=== PATIENT | male | born 1975 | race African-American/Black ===

== ENCOUNTER → 2020-04-01 | Outpatient (CLI) | payer MEDICAID | END | disposition home or self-care (01) | LOC: RAH 14:21 | PROVIDERS: ATTEND Orthopaedic Surgery | DX: M48.061 Spinal stenosis, lumbar region without neurogenic claudication (principal) | CPT/HCPCS: 72131 ==

== ENCOUNTER → 2020-04-29 | Outpatient (CLI) | payer MEDICAID | END | disposition home or self-care (01) | LOC: EDUNIT# 13:00 → SHCH 13:00 | PROVIDERS: ATTEND Internal Medicine Cardiovascular Disease | DX: R20.0 Anesthesia of skin (principal); R06.00 Dyspnea, unspecified; R07.9 Chest pain, unspecified | CPT/HCPCS: 93306; 93356; 93922 ==

== ENCOUNTER 2020-05-12 15:49 | Inpatient (IN) | payer MEDICAID ==
[~2020-05-12] VITALS: Ht 190.5 cm; Wt 158.2 kg
[2020-05-12 16:47] LABS: BASOPHILS % (AUTO) 0.5 % (0.0-5.0); EOSINOPHILS % (AUTO) 3.1 % (0.0-8.0); HEMATOCRIT 37.3 % (42-54); LYMPHOCYTES % (AUTO) 27.8 % (21.0-51.0); MEAN CORPUSCULAR HEMOGLOBIN 28.6 pg (27.0-33.0); MEAN CORPUSCULAR HGB CONC 33.2 g/dL (32.0-36.0); MEAN CORPUSCULAR VOLUME 85.9 fL (79-99); MONOCYTES % (AUTO) 6.8 % (3.0-13.0); NEUTROPHILS % (AUTO) 61.5 % (40.0-77.0); PLATELET COUNT (AUTO) 234 K/uL (130-400); RED BLOOD CELL COUNT(AUTO) 4.34 MIL/uL (4.50-6.20); RED CELL DISTRIBUTION WIDTH 13.7 % (11.0-15.5); WHITE BLOOD COUNT (AUTO) 6.5 K/uL (4.8-10.8)
[2020-05-12 16:55] LABS: POTASSIUM 3.8 mmol/L (3.5-5.1)
[2020-05-12 16:58] LABS: INR 1.05 (0.85-1.15); PROTHROMBIN TIME 11.4 SEC (9.6-11.6)
[2020-05-12 16:59] LABS: PARTIAL THROMBOPLASTIN TIME 31.3 SEC (26.3-35.5)
[2020-05-12 17:00] LABS: BILIRUBIN,TOTAL 0.3 mg/dL (0.2-1.0); TOTAL PROTEIN, SERUM 7.4 g/dL (6.0-8.3)
[2020-05-12] MEDS ORDERED: 0.9%NACL 10ML VIAL IVP PRN (17:45)
[2020-05-12 18:32] VITALS: BP 162/84
[2020-05-12] MEDS ORDERED: SERT-439 PO (18:34)
[2020-05-12] MEDS ORDERED: QUET100T34 PO (18:34)
[2020-05-12] MEDS ORDERED: RIVA20TA PO (18:34)
[2020-05-12] MEDS ORDERED: NAPR500T6 PO (18:34)
[2020-05-12] MEDS ORDERED: LEVE500T19 PO (18:34)
[2020-05-12] MEDS ORDERED: LISI1TAB53 PO (18:34)
[2020-05-12] MEDS ORDERED: FLEC100T3 PO (18:34)
[2020-05-12] MEDS ORDERED: SERT-440 PO (18:34)
[2020-05-12] MEDS ORDERED: LORA-192 PO (18:34)
[2020-05-12] MEDS ORDERED: METO-408 PO (18:34)
[2020-05-12] MEDS ORDERED: ERGO500093 PO (18:34)
[2020-05-12] MEDS ORDERED: FUROSEMIDE 20 MG TABLET PO SCH (18:45)
[2020-05-12] MEDS ORDERED: ACETAMINOPHEN 325 MG TAB PO PRN ×2 (19:00)
[2020-05-12] MEDS ORDERED: ONDANSETRON 4MG INJ IV PRN (19:00)
[2020-05-12] MEDS: TRAMADOL HCL 50 MG TABLET PO SCH (19:15)
[2020-05-12 19:41] VITALS: BP 163/74
[2020-05-12] MEDS: FLECAINIDE ACETATE 100 MG TABLET PO SCH (20:41)
[2020-05-12] MEDS: QUETIAPINE FUMARATE 100 MG TAB PO SCH (20:41)
[2020-05-12] MEDS: FAMOTIDINE 20MG VIAL IV SCH (20:41)
[2020-05-12 23:52] VITALS: BP 153/92
[2020-05-13] MEDS: TRAMADOL HCL 50 MG TABLET PO SCH ×4 (00:44→19:15)
[2020-05-13 03:47] LABS: BASOPHILS % (AUTO) 0.5 % (0.0-5.0); EOSINOPHILS % (AUTO) 4.2 % (0.0-8.0); HEMATOCRIT 35.3 % (42-54); LYMPHOCYTES % (AUTO) 34.7 % (21.0-51.0); MEAN CORPUSCULAR HEMOGLOBIN 29.2 pg (27.0-33.0); MEAN CORPUSCULAR VOLUME 85.9 fL (79-99); MONOCYTES % (AUTO) 6.2 % (3.0-13.0); NEUTROPHILS % (AUTO) 54.1 % (40.0-77.0); PLATELET COUNT (AUTO) 226 K/uL (130-400); RED BLOOD CELL COUNT(AUTO) 4.11 MIL/uL (4.50-6.20); RED CELL DISTRIBUTION WIDTH 13.8 % (11.0-15.5); WHITE BLOOD COUNT (AUTO) 5.8 K/uL (4.8-10.8)
[2020-05-13 04:06] LABS: ALBUMIN 3.6 g/dL (3.5-5.0); BILIRUBIN,TOTAL 0.2 mg/dL (0.2-1.0); POTASSIUM 3.6 mmol/L (3.5-5.1)
[2020-05-13 04:50] VITALS: BP 136/71
[2020-05-13 08:00] VITALS: BP 136/64
[2020-05-13] MEDS ORDERED: 0.9% NACL 500ML IV.SOLN 500 ML IV SCH (08:45)
[2020-05-13] MEDS: FLECAINIDE ACETATE 100 MG TABLET PO SCH ×2 (09:19→21:32)
[2020-05-13] MEDS: HYDROCHLOROTHIAZIDE 25 MG TABLET PO SCH (09:19)
[2020-05-13] MEDS: SERTRALINE HCL 50 MG TABLET PO SCH (09:19)
[2020-05-13] MEDS: LISINOPRIL 20 MG TABLET PO SCH (09:19)
[2020-05-13] MEDS: FAMOTIDINE 20MG VIAL IV SCH ×2 (09:19→21:31)
[2020-05-13 12:00] VITALS: BP_SYST 130; BP_SYST 134; BP_DIAS 76; BP_DIAS 77
[2020-05-13 16:00] VITALS: BP 149/80
[2020-05-13 19:33] VITALS: BP 144/74
[2020-05-13] MEDS: QUETIAPINE FUMARATE 100 MG TAB PO SCH (21:31)
[2020-05-13] MEDS ORDERED: QUET100T PO (21:37)
[2020-05-13 23:55] VITALS: BP 137/77
[2020-05-14] VITALS (10 sets, daily range): BP systolic 110–153; BP diastolic 58–92
[2020-05-14 00:36] LABS: BASOPHILS % (AUTO) 0.6 % (0.0-5.0); EOSINOPHILS % (AUTO) 3.3 % (0.0-8.0); HEMATOCRIT 36.2 % (42-54); LYMPHOCYTES % (AUTO) 30.1 % (21.0-51.0); MEAN CORPUSCULAR HEMOGLOBIN 29.2 pg (27.0-33.0); MEAN CORPUSCULAR HGB CONC 34.3 g/dL (32.0-36.0); MEAN CORPUSCULAR VOLUME 85.2 fL (79-99); MONOCYTES % (AUTO) 6.7 % (3.0-13.0); PLATELET COUNT (AUTO) 230 K/uL (130-400); RED BLOOD CELL COUNT(AUTO) 4.25 MIL/uL (4.50-6.20); RED CELL DISTRIBUTION WIDTH 13.9 % (11.0-15.5); WHITE BLOOD COUNT (AUTO) 6.4 K/uL (4.8-10.8)
[2020-05-14] MEDS: TRAMADOL HCL 50 MG TABLET PO SCH ×4 (01:15→20:38)
[2020-05-14] MEDS ORDERED: SODIUM BICARB 50MEQ 50ML VIAL 50 ML ONE (07:12)
[2020-05-14] MEDS ORDERED: IOHEXOL 350 MG/ML 100ML INFUS..BTL IV ONE (07:13)
[2020-05-14] MEDS ORDERED: NITROGLYCERIN 2 MG VIAL IV ONE (07:13)
[2020-05-14] MEDS ORDERED: NICARDIPINE 25MG INJ IV ONE (07:13)
[2020-05-14] MEDS ORDERED: IOHEXOL-350 50ML VIAL IV ONE (07:13)
[2020-05-14] MEDS ORDERED: MIDAZOLAM HCL 1 MG/ML 2ML VIAL ONE ×4 (07:13→12:28)
[2020-05-14] MEDS ORDERED: FENTANYL CITRATE PF 50 MCG/1 ML 2ML VIAL ONE ×2 (07:13→08:28)
[2020-05-14] MEDS ORDERED: BIVALIRUDIN 250 MG/VIAL IV ONE (07:13)
[2020-05-14] MEDS ORDERED: LIDOCAINE HCL 400MG/20ML VIAL ONE ×2 (07:14→10:40)
[2020-05-14] MEDS ORDERED: HEPARIN 10,000 UNIT/10ML (1,000 UNIT/ML) VIAL ONE (07:22)
[2020-05-14] MEDS ORDERED: 0.9%NACL 1000ML 1,000 ML IV SCH (08:45)
[2020-05-14] MEDS ORDERED: ISOSORBIDE MONO 30MG SR TAB PO SCH (09:00)
[2020-05-14] MEDS: SERTRALINE HCL 50 MG TABLET PO SCH (09:00)
[2020-05-14] MEDS: ISOSORBIDE MONO 30MG SR TAB PO SCH (09:59)
[2020-05-14] MEDS: FAMOTIDINE 20MG VIAL IV SCH ×2 (09:59→20:37)
[2020-05-14] MEDS: LISINOPRIL 20 MG TABLET PO SCH (09:59)
[2020-05-14] MEDS: HYDROCHLOROTHIAZIDE 25 MG TABLET PO SCH (09:59)
[2020-05-14] MEDS: FLECAINIDE ACETATE 100 MG TABLET PO SCH (09:59)
[2020-05-14] MEDS: HYDRALAZINE 25MG TABLET PO SCH ×3 (09:59→20:38)
[2020-05-14] MEDS ORDERED: MEPERIDINE-PF 25 MG/ML SYG ONE ×3 (10:40→12:28)
[2020-05-14] MEDS ORDERED: LIDOCAINE HCL 1% MDV 50ML VIAL ONE (12:44)
[2020-05-14] MEDS ORDERED: HYDR-4153 PO (17:47)
[2020-05-14] MEDS ORDERED: ISOS60TA77 PO (17:47)
[2020-05-14] MEDS: QUETIAPINE FUMARATE 100 MG TAB PO SCH (20:39)
[2020-05-15] VITALS: BP 133/74
[2020-05-15] MEDS: TRAMADOL HCL 50 MG TABLET PO SCH ×3 (01:15→13:15)
[2020-05-15 04:00] VITALS: BP 117/60
[2020-05-15 04:36] LABS: BASOPHILS % (AUTO) 0.2 % (0.0-5.0); EOSINOPHILS % (AUTO) 0.2 % (0.0-8.0); HEMATOCRIT 36.1 % (42-54); LYMPHOCYTES % (AUTO) 11.3 % (21.0-51.0); MEAN CORPUSCULAR HEMOGLOBIN 28.5 pg (27.0-33.0); MEAN CORPUSCULAR VOLUME 86.4 fL (79-99); MONOCYTES % (AUTO) 3.8 % (3.0-13.0); NEUTROPHILS % (AUTO) 84.1 % (40.0-77.0); PLATELET COUNT (AUTO) 237 K/uL (130-400); RED BLOOD CELL COUNT(AUTO) 4.18 MIL/uL (4.50-6.20); RED CELL DISTRIBUTION WIDTH 13.9 % (11.0-15.5); WHITE BLOOD COUNT (AUTO) 8.3 K/uL (4.8-10.8)
[2020-05-15 04:52] LABS: CREATININE 1.2 mg/dL (0.5-1.5); POTASSIUM 3.4 mmol/L (3.5-5.1)
[2020-05-15 08:00] VITALS: BP 130/67
[2020-05-15] MEDS: SERTRALINE HCL 50 MG TABLET PO SCH (09:00)
[2020-05-15] MEDS: FAMOTIDINE 20MG VIAL IV SCH (09:40)
[2020-05-15] MEDS: HYDROCHLOROTHIAZIDE 25 MG TABLET PO SCH (09:42)
[2020-05-15] MEDS: LISINOPRIL 20 MG TABLET PO SCH (09:42)
[2020-05-15] MEDS: HYDRALAZINE 25MG TABLET PO SCH ×2 (09:42→15:46)
[2020-05-15] MEDS: ISOSORBIDE MONO 30MG SR TAB PO SCH (09:43)
[2020-05-15 12:00] VITALS: BP 131/63
[2020-05-15] MEDS ORDERED: KCL 20 MEQ ERTAB PO SCH (13:30)
[2020-05-15 16:00] VITALS: BP 159/87
== END 2020-05-15 18:13 | disposition home or self-care (01) | DRG 192 ==
LOC: EDH 15:49 → EDHIP 15:50 → 4DH 18:02
PROVIDERS: ADMIT Family Medicine; ATTEND Family Medicine
PROC: 4A023N7 Measurement of Cardiac Sampling and Pressure, Left Heart, Percutaneous Approach (ICD-10-PCS; principal; 2020-05-14)
PROC: B2111ZZ Fluoroscopy of Multiple Coronary Arteries using Low Osmolar Contrast (ICD-10-PCS; 2020-05-14)
PROC: B2151ZZ Fluoroscopy of Left Heart using Low Osmolar Contrast (ICD-10-PCS; 2020-05-14)
PROC: 0JH632Z Insertion of Monitoring Device into Chest Subcutaneous Tissue and Fascia, Percutaneous Approach (ICD-10-PCS; 2020-05-14)
PROC: 4A023FZ Measurement of Cardiac Rhythm, Percutaneous Approach (ICD-10-PCS; 2020-05-14)
PROC: 4A0234Z Measurement of Cardiac Electrical Activity, Percutaneous Approach (ICD-10-PCS; 2020-05-14)
DX: R07.9 Chest pain, unspecified (principal); I44.1 Atrioventricular block, second degree; R55 Syncope and collapse; I48.0 Paroxysmal atrial fibrillation; M17.0 Bilateral primary osteoarthritis of knee; F31.9 Bipolar disorder, unspecified; F41.9 Anxiety disorder, unspecified; G40.909 Epilepsy, unspecified, not intractable, without status epilepticus; I10 Essential (primary) hypertension; G47.33 Obstructive sleep apnea (adult) (pediatric); E66.01 Morbid (severe) obesity due to excess calories; I42.9 Cardiomyopathy, unspecified; Z68.41 Body mass index [BMI] 40.0-44.9, adult
CPT/HCPCS: 33285; 36415; 71045; 80048; 80053; 84484; 85025; 85610; 85730; 93005; 93458; 93620; 99156; 99157; C1730; C1760; C1769; C1894; G0378; J0583; J1644; J2175; J2250; J2405; J3010; J3490; Q9967

== ENCOUNTER 2020-05-20 19:12 | Emergency (ER) | payer MEDICAID ==
[~2020-05-20 19:12] MED LIST: ERGO500014 PO; FLEC100T3 PO; LEVE500T19 PO; LISI1TAB29 PO; LORA-192 PO; METO-408 PO; NAPR500T6 PO; QUET100T PO; QUET100T33 PO; RIVA20TA PO; SERT-439 PO; SERT-440 PO
== END 2020-05-20 19:32 | disposition left against medical advice (07) ==
LOC: EDH 19:12
DX: Z53.21 Procedure and treatment not carried out due to patient leaving prior to being seen by health care provider (principal)

== ENCOUNTER → 2020-08-17 | Outpatient (CLI) | payer OTHER ==
[~2020-08-17] VITALS: Ht 7.6 cm; Wt 154.2 kg
[~2020-08-17] MED LIST changes: -ERGO500014 PO; +ERGO500093 PO
== END | disposition home or self-care (01) ==
LOC: DTH 13:23
PROVIDERS: ATTEND Surgery
DX: G47.33 Obstructive sleep apnea (adult) (pediatric) (principal); E66.01 Morbid (severe) obesity due to excess calories; I10 Essential (primary) hypertension; M19.91 Primary osteoarthritis, unspecified site; E78.00 Pure hypercholesterolemia, unspecified
CPT/HCPCS: 97802

== ENCOUNTER → 2020-10-07 | Outpatient (CLI) | payer OTHER ==
[~2020-10-07] MED LIST changes: +HYDR-4153 PO; +ISOS60TA77 PO
== END | disposition home or self-care (01) ==
LOC: DTH 11:28
PROVIDERS: ATTEND Surgery
DX: G47.33 Obstructive sleep apnea (adult) (pediatric) (principal); E66.01 Morbid (severe) obesity due to excess calories; I10 Essential (primary) hypertension; M19.91 Primary osteoarthritis, unspecified site; E78.00 Pure hypercholesterolemia, unspecified
CPT/HCPCS: 97803

== ENCOUNTER 2021-09-05 15:40 | Emergency (ER) | payer OTHER, MEDICARE ==
[~2021-09-05 15:40] MED LIST changes: -LISI1TAB29 PO; +LISI1TAB53 PO; -QUET100T33 PO; +QUET100T34 PO
[2021-09-05 16:14] LABS: BASOPHILS % (AUTO) 0.4 % (0.0-5.0); EOSINOPHILS % (AUTO) 3.5 % (0.0-8.0); HEMATOCRIT 37.1 % (42-54); LYMPHOCYTES % (AUTO) 26.2 % (21.0-51.0); MEAN CORPUSCULAR HEMOGLOBIN 28.5 pg (27.0-33.0); MEAN CORPUSCULAR HGB CONC 33.7 g/dL (32.0-36.0); MEAN CORPUSCULAR VOLUME 84.5 fL (79-99); MONOCYTES % (AUTO) 6.8 % (3.0-13.0); NEUTROPHILS % (AUTO) 62.9 % (40.0-77.0); PLATELET COUNT (AUTO) 251 K/uL (130-400); RED BLOOD CELL COUNT(AUTO) 4.39 MIL/uL (4.50-6.20); RED CELL DISTRIBUTION WIDTH 15.2 % (11.0-15.5); WHITE BLOOD COUNT (AUTO) 4.6 K/uL (4.8-10.8)
[2021-09-05 16:17] LABS: APPEARANCE,URINE Clear (CLEAR); BILIRUBIN,URINE Negative (NEGATIVE); COLOR,URINE Yellow (YELLOW); GLUCOSE, URINE (UA) Negative (NEGATIVE); KETONES,URINE Negative (NEGATIVE); LEUKOCYTE ESTERASE ,URINE Negative (NEGATIVE); NITRATE,URINE Negative (NEGATIVE); OCCULT BLOOD,URINE Negative (NEGATIVE); PROTEIN,URINE Negative (NEGATIVE); UROBILINOGEN,URINE 0.2 mg/dL (0.2-1.0)
[2021-09-05 16:24] LABS: AMPHET/METH SCREEN,URINE NEGATIVE (NEGATIVE); BARBITURATE SCREEN, URINE NEGATIVE (NEGATIVE); BENZODIAZEPINES SCREEN,URINE NEGATIVE (NEGATIVE); CANNABINOID SCREEN,URINE NEGATIVE (NEGATIVE); COCAINE SCREEN,URINE NEGATIVE (NEGATIVE); OPIATE SCREEN,URINE NEGATIVE (NEGATIVE); PHENCYCLIDINE SCREEN,URINE NEGATIVE (NEGATIVE)
[2021-09-05 16:37] LABS: ALANINE AMINOTRANSFERASE 27 U/L (12-78); ALBUMIN 3.6 g/dL (3.5-5.0); ALCOHOL, BLOOD < 3 mg/dL (0-10); ASPARTATE AMINOTRANSFERASE 23 U/L (10-37); CARBON DIOXIDE 29 mmol/L (21-32); CHLORIDE 102 mmol/L (101-111); CREATININE 0.8 mg/dL (0.5-1.5); GLOMERULAR FILTR. RATE CALC 134 mL/min (>60); GLUCOSE,RANDOM 96 mg/dL (70-105); SODIUM SERUM 141 mmol/L (136-145); TOTAL PROTEIN, SERUM 7.2 g/dL (6.0-8.3); UREA NITROGEN, BLOOD 10 mg/dL (7-18)
[2021-09-05 16:40] LABS: ACETAMINOPHEN < 1 mcg/mL (10-29); SALICYLATE < 2.8 mg/dL (2.8-20.0)
[2021-09-05] MEDS ORDERED: POTASSIUM BICARB/CIT AC 25 MEQ TABLET.EFF ONE (17:08)
[2021-09-05] MEDS ORDERED: 0.9%NACL 1000ML 1,000 ML IV SCH ×3 (18:00→20:30)
[2021-09-05 20:17] LABS: ACETAMINOPHEN < 1 mcg/mL (10-29); SALICYLATE < 2.8 mg/dL (2.8-20.0)
[2021-09-05 20:19] LABS: CREATINE KINASE, TOTAL 415 U/L (21-232)
[2021-09-06 00:06] VITALS: BP 128/75
== END 2021-09-06 00:16 ==
LOC: EDH 15:40
DX: T43.212A Poisoning by selective serotonin and norepinephrine reuptake inhibitors, intentional self-harm, initial encounter (principal); Z20.822 Contact with and (suspected) exposure to COVID-19; F41.9 Anxiety disorder, unspecified; F32.A Depression, unspecified; I10 Essential (primary) hypertension; I48.91 Unspecified atrial fibrillation; E86.0 Dehydration; Z79.899 Other long term (current) drug therapy; Y92.89 Other specified places as the place of occurrence of the external cause
CPT/HCPCS: 99284; 82550 ×2; 84484; 80053; 80305; 85025; 81003; 36415; 87635; 96360; 96361; 93005; G0481 ×2; C9803; J7030

== ENCOUNTER → 2022-01-18 | Outpatient (CLI) | payer OTHER, MEDICARE ==
[2022-01-18 12:30] LABS: POTASSIUM 3.8 mmol/L (3.5-5.1)
== END | disposition home or self-care (01) ==
LOC: LAB 09:57
PROVIDERS: ATTEND Internal Medicine Cardiovascular Disease
DX: I11.0 Hypertensive heart disease with heart failure (principal); I50.22 Chronic systolic (congestive) heart failure; I48.0 Paroxysmal atrial fibrillation; J45.909 Unspecified asthma, uncomplicated
CPT/HCPCS: 36415; 80048; 83880

== ENCOUNTER → 2022-06-19 | Outpatient (CLI) | payer OTHER, MEDICARE ==
[2022-06-19 12:44] LABS: CREATININE 1.1 mg/dL (0.5-1.5); POTASSIUM 3.6 mmol/L (3.5-5.1)
== END | disposition home or self-care (01) ==
LOC: LAB 10:15
PROVIDERS: ATTEND Internal Medicine Cardiovascular Disease
DX: I48.0 Paroxysmal atrial fibrillation (principal); I50.32 Chronic diastolic (congestive) heart failure; D68.59 Other primary thrombophilia
CPT/HCPCS: 36415; 80048; 83880

== ENCOUNTER → 2023-02-22 | Outpatient (CLI) | payer MEDICARE, OTHER ==
[2023-02-22 16:31] LABS: BASOPHILS # (AUTO) 0.03 K/uL (0.00-0.20); BASOPHILS % (AUTO) 0.6 % (0.0-5.0); EOSINOPHILS # (AUTO) 0.22 K/uL (0.00-0.70); EOSINOPHILS % (AUTO) 4.6 % (0.0-8.0); HEMATOCRIT 43.8 % (42-54); IMMATURE GRANULOCYTE ABSOLUTE 0.02 K/uL (0-1); LYMPHOCYTES # (AUTO) 1.4 K/uL (1.0-4.8); LYMPHOCYTES % (AUTO) 29.1 % (21.0-51.0); MEAN CORPUSCULAR HEMOGLOBIN 29.6 pg (27.0-33.0); MEAN CORPUSCULAR HGB CONC 33.1 g/dL (32.0-36.0); MEAN CORPUSCULAR VOLUME 89.4 fL (79-99); MONOCYTES # (AUTO) 0.2 K/uL (0.1-1.0); MONOCYTES % (AUTO) 4.2 % (3.0-13.0); NEUTROPHILS # (AUTO) 2.9 K/uL (1.8-7.7); NEUTROPHILS % (AUTO) 61.1 % (40.0-77.0); PLATELET COUNT (AUTO) 219 K/uL (130-400); RED CELL DISTRIBUTION WIDTH 14.7 % (11.0-15.5); WHITE BLOOD COUNT (AUTO) 4.8 K/uL (4.8-10.8)
[2023-02-22 17:02] LABS: ALBUMIN 3.3 g/dL (3.5-5.0); BILIRUBIN,TOTAL 0.3 mg/dL (0.2-1.0); CREATININE 0.9 mg/dL (0.5-1.5); MAGNESIUM 1.8 mg/dL (1.80-2.40); POTASSIUM 3.6 mmol/L (3.5-5.1); TOTAL PROTEIN, SERUM 6.4 g/dL (6.0-8.3)
== END | disposition home or self-care (01) ==
LOC: LAB 11:57
PROVIDERS: ATTEND Internal Medicine Cardiovascular Disease
DX: I48.0 Paroxysmal atrial fibrillation (principal); R20.2 Paresthesia of skin; D68.59 Other primary thrombophilia; I10 Essential (primary) hypertension
CPT/HCPCS: 36415; 80053; 80061; 83735; 85025